=== PATIENT | male | born 1945 | race Caucasian/White ===

== ENCOUNTER 2018-08-14 13:14 | Emergency (ER) | payer MEDICARE ==
[~2018-08-14] VITALS: Ht 172.7 cm; Wt 104.2 kg
[~2018-08-14 13:14] MED LIST: ALLO300T PO; FINA5TAB4 PO
[2018-08-14 13:22] VITALS: BP 134/95
[2018-08-14] MEDS ORDERED: L.E.T SOLUTION TP ONE ×2 (13:53→14:00)
[2018-08-14] MEDS ORDERED: DIPH,PERTUSS(ACELL),TET VAC/PF 0.5 ML IM-VACC ONE ×2 (14:00)
== END 2018-08-14 14:24 | disposition home or self-care (01) ==
LOC: ED 14:15
DX: S06.0X0A Concussion without loss of consciousness, initial encounter (principal); S01.01XA Laceration without foreign body of scalp, initial encounter; M10.9 Gout, unspecified; W01.0XXA Fall on same level from slipping, tripping and stumbling without subsequent striking against object, initial encounter; Y93.89 Activity, other specified; Y92.009 Unspecified place in unspecified non-institutional (private) residence as the place of occurrence of the external cause; Y99.8 Other external cause status
CPT/HCPCS: 12031; 70450; 72125; 90471; 90715; 99285

== ENCOUNTER 2019-09-22 09:22 | Inpatient (IN) | payer MEDICARE ==
[~2019-09-22] VITALS: Ht 172.7 cm; Wt 102.3 kg
--- NOTE | 2019-09-22 11:25 | NUR ---
TASK RN: BLADDER IRRIGATION COMPLETED BY USAMA, PRIMARY RN. PT CURRENTLY HAS PINK TINGED DRAINAGE. NO CLOTS NOTED. PT RESTING ON GURNEY. STATES HE FEELS MUCH IMPROVED. VSS.
--- NOTE | 2019-09-22 11:40 | NUR ---
PT PRESENTED TO ER THIS MORNING WITH INABILITY TO URINATE, AND BLOODY DRAINAGE FROM URETHRA. 20FR COUDE TIP SINGLE LUMEN CATHETER PLACED. 400ML STERILE WATER USED FOR MANUAL IRRIGATION OF BLADDER. MANY CLOTS DRAINED. BLADDER SCAN IN ALL 4 QUADS SHOWS 0ML, 0ML, 0ML, AND 17ML. ERP VERBAL ORDER FOR 300ML STERILE WATER TO BE INSTILLED, THEN ALLOWED TO DRAIN TO CHECK FOR CLARITY AND POSSIBLE CONTINUING BLEEDING. PT TOLERATED 250ML. CALL LIGHT IN REACH, PT DENIES ANY CURRENT NEEDS OR CONCERNS, WARM BLANKETS PROVIDED. WILL CONTINUE TO MONITOR.
[2019-09-22 12:24] LABS: BASOPHILS # (AUTO) 0.02 x10^3/uL (0-0.1); BASOPHILS % (AUTO) 0 % (0-1); EOSINOPHILS # (AUTO) 0.02 x10^3/uL (0-0.4); EOSINOPHILS % (AUTO) 0 % (1-7); LYMPHOCYTES # (AUTO) 0.58 x10^3/uL (1-3.4); LYMPHOCYTES % (AUTO) 7 % (22-44); MD NO; MEAN CORPUSCULAR HGB CONC 33.2 g/dL (33.2-36.2); MEAN CORPUSCULAR VOLUME 99.4 fL (81-97); MEAN PLATELET VOLUME 8.4 fL (7.4-10.4); MONOCYTES # (AUTO) 0.59 x10^3/uL (0.2-0.8); MONOCYTES % (AUTO) 7 % (2-9); NEUTROPHILS # (AUTO) 6.94 x10^3/uL (1.8-6.8); NEUTROPHILS % (AUTO) 85 % (42-75); PLATELET COUNT 169 x10^3/uL (130-400); RED BLOOD COUNT 4.56 x10^6/uL (4.38-5.82); RED CELL DISTRIBUTION WIDTH 14.5 % (9.4-14.8)
[2019-09-22 12:32] LABS: PROTHROMBIN TIME 10.5 Seconds (9.6-11.5)
[2019-09-22 12:34] LABS: ALBUMIN 3.5 g/dL (3.4-5.0); ANION GAP 5 mmol/L (5-15); CALCIUM 8.8 mg/dL (8.5-10.1); CHLORIDE 112 mmol/L (98-107)
[2019-09-22 12:38] LABS: ALANINE AMINOTRANSFERASE 33 U/L (12-78); ALKALINE PHOSPHATASE 53 U/L (45-117); BILIRUBIN,TOTAL 0.7 mg/dL (0.2-1.0); CREATININE 0.96 mg/dL (0.7-1.3); TOTAL PROTEIN 6.8 g/dL (6.4-8.2)
--- NOTE | 2019-09-22 12:51 | NUR ---
REPORT CALLED TO MIRYAM RN. PT AWAITING CT BEFORE GOING UPSTAIRS. IV STARTED IN LAC, 20G. PT TOLERATED WELL. DRAINAGE BAG CHANGED DUE TO BLOCKAGE BY CLOTS. PT DENIES ANY FURTHER NEEDS OR CONCERNS AT THIS TIME. CALL LIGHT IN REACH.
--- NOTE | 2019-09-22 13:39 | NUR ---
PT TAKEN TO CT. PT BELONGINGS BAGGED. READY FOR TRANSPORT UPON RETURN TO ROOM.
[2019-09-22] MEDS ORDERED: ONDANSETRON 2MG/ML, 2ML IVPush PRN (14:30)
[2019-09-22] MEDS ORDERED: ACETAMINOPHEN 325 MG TABLET PO PRN (14:30)
[2019-09-22] MEDS ORDERED: ONDANSETRON ODT 4 MG PO PRN (14:30)
[2019-09-22] MEDS ORDERED: POLYETHYLENE GLYCOL 17 GM PACKET PO PRN (14:30)
[2019-09-22] MEDS ORDERED: morphine SULFATE 10 MG/ML, 1ML IVPush PRN (14:30)
[2019-09-22] MEDS ORDERED: hydrALAzine 20 MG/ML, 1ML IVPush PRN (14:30)
[2019-09-22] MEDS ORDERED: GUAIFENESIN/DM 200-20MG, 10ML UDC PO PRN (14:30)
[2019-09-22] MEDS ORDERED: TRAZODONE 50MG TABLET PO PRN (14:30)
[2019-09-22] MEDS ORDERED: ASA/APAP/ CAFFEINE TABLET PO PRN (14:30)
[2019-09-22 14:35] VITALS: BP 136/83
[2019-09-22 21:08] VITALS: BP 104/70
[2019-09-23 05:23] LABS: BASOPHILS # (AUTO) 0.02 x10^3/uL (0-0.1); BASOPHILS % (AUTO) 0 % (0-1); EOSINOPHILS # (AUTO) 0.08 x10^3/uL (0-0.4); EOSINOPHILS % (AUTO) 1 % (1-7); LYMPHOCYTES # (AUTO) 0.79 x10^3/uL (1-3.4); LYMPHOCYTES % (AUTO) 13 % (22-44); MD NO; MEAN CORPUSCULAR HEMOGLOBIN 32.8 pg (27.5-34.5); MEAN CORPUSCULAR HGB CONC 33.7 g/dL (33.2-36.2); MEAN CORPUSCULAR VOLUME 97.4 fL (81-97); MEAN PLATELET VOLUME 8.3 fL (7.4-10.4); MONOCYTES # (AUTO) 0.68 x10^3/uL (0.2-0.8); MONOCYTES % (AUTO) 11 % (2-9); NEUTROPHILS # (AUTO) 4.57 x10^3/uL (1.8-6.8); NEUTROPHILS % (AUTO) 74 % (42-75); PLATELET COUNT 166 x10^3/uL (130-400); RED BLOOD COUNT 4.19 x10^6/uL (4.38-5.82); RED CELL DISTRIBUTION WIDTH 14.4 % (9.4-14.8)
[2019-09-23 05:31] LABS: ANION GAP 7 mmol/L (5-15); CALCIUM 8.4 mg/dL (8.5-10.1); CHLORIDE 110 mmol/L (98-107)
[2019-09-23 05:32] LABS: CREATININE 1.09 mg/dL (0.7-1.3)
[2019-09-23 07:20] VITALS: BP 121/74
[2019-09-23] MEDS: ALLOPURINOL 300 MG TABLET PO SCH (09:36)
[2019-09-23] MEDS: FINASTERIDE 5 MG TABLET PO SCH (09:36)
[2019-09-23 13:29] VITALS: BP_SYST 100; BP_SYST 129; BP_DIAS 64; BP_DIAS 87
[2019-09-23 19:25] VITALS: BP 138/83
[2019-09-24 01:50] VITALS: BP 129/79
[2019-09-24 07:22] VITALS: BP 114/73
[2019-09-24 08:10] LABS: BASOPHILS # (AUTO) 0.03 x10^3/uL (0-0.1); BASOPHILS % (AUTO) 1 % (0-1); EOSINOPHILS # (AUTO) 0.12 x10^3/uL (0-0.4); EOSINOPHILS % (AUTO) 2 % (1-7); LYMPHOCYTES # (AUTO) 0.73 x10^3/uL (1-3.4); LYMPHOCYTES % (AUTO) 14 % (22-44); MD NO; MEAN CORPUSCULAR HEMOGLOBIN 32.7 pg (27.5-34.5); MEAN CORPUSCULAR HGB CONC 33.7 g/dL (33.2-36.2); MEAN CORPUSCULAR VOLUME 97.2 fL (81-97); MEAN PLATELET VOLUME 8.4 fL (7.4-10.4); MONOCYTES # (AUTO) 0.63 x10^3/uL (0.2-0.8); MONOCYTES % (AUTO) 12 % (2-9); NEUTROPHILS % (AUTO) 72 % (42-75); PLATELET COUNT 164 x10^3/uL (130-400); RED BLOOD COUNT 4.18 x10^6/uL (4.38-5.82); RED CELL DISTRIBUTION WIDTH 14.4 % (9.4-14.8)
[2019-09-24] MEDS: ALLOPURINOL 300 MG TABLET PO SCH (09:27)
[2019-09-24] MEDS: FINASTERIDE 5 MG TABLET PO SCH (09:27)
[2019-09-24 12:52] VITALS: BP 120/79
[2019-09-24 19:08] VITALS: BP 143/85
[2019-09-25 05:13] LABS: BASOPHILS # (AUTO) 0.03 x10^3/uL (0-0.1); BASOPHILS % (AUTO) 0 % (0-1); EOSINOPHILS # (AUTO) 0.19 x10^3/uL (0-0.4); EOSINOPHILS % (AUTO) 3 % (1-7); LYMPHOCYTES # (AUTO) 1.06 x10^3/uL (1-3.4); LYMPHOCYTES % (AUTO) 15 % (22-44); MD NO; MEAN CORPUSCULAR HEMOGLOBIN 33.1 pg (27.5-34.5); MEAN CORPUSCULAR HGB CONC 33.2 g/dL (33.2-36.2); MEAN CORPUSCULAR VOLUME 99.7 fL (81-97); MEAN PLATELET VOLUME 8.6 fL (7.4-10.4); MONOCYTES # (AUTO) 0.95 x10^3/uL (0.2-0.8); MONOCYTES % (AUTO) 14 % (2-9); NEUTROPHILS # (AUTO) 4.75 x10^3/uL (1.8-6.8); NEUTROPHILS % (AUTO) 68 % (42-75); PLATELET COUNT 154 x10^3/uL (130-400); RED BLOOD COUNT 3.96 x10^6/uL (4.38-5.82); RED CELL DISTRIBUTION WIDTH 14.4 % (9.4-14.8)
[2019-09-25 05:20] LABS: ANION GAP 6 mmol/L (5-15); CALCIUM 8.6 mg/dL (8.5-10.1); CHLORIDE 109 mmol/L (98-107)
[2019-09-25 05:24] LABS: ALANINE AMINOTRANSFERASE 27 U/L (12-78); ALKALINE PHOSPHATASE 48 U/L (45-117); BILIRUBIN,TOTAL 0.5 mg/dL (0.2-1.0); CREATININE 0.99 mg/dL (0.7-1.3)
[2019-09-25 06:44] VITALS: BP 123/76
[2019-09-25] MEDS: ALLOPURINOL 300 MG TABLET PO SCH (08:24)
[2019-09-25] MEDS: FINASTERIDE 5 MG TABLET PO SCH (08:25)
[2019-09-25] MEDS: DOCUSATE 100 MG CAPSULE PO SCH ×2 (11:59→20:11)
[2019-09-25 18:55] VITALS: BP 136/94
[2019-09-26 00:36] VITALS: BP 125/73
[2019-09-26 07:28] VITALS: BP 124/77
[2019-09-26] MEDS: ALLOPURINOL 300 MG TABLET PO SCH (08:29)
[2019-09-26] MEDS: DOCUSATE 100 MG CAPSULE PO SCH ×2 (08:29→20:25)
[2019-09-26] MEDS: FINASTERIDE 5 MG TABLET PO SCH (08:29)
[2019-09-26 12:38] VITALS: BP 136/89
[2019-09-26] MEDS ORDERED: FENTANYL PF 100 MCG/2ML ONE ×2 (14:00→15:07)
[2019-09-26] MEDS ORDERED: LIDOCAINE-MPF 2% ,5ML ONE (14:01)
[2019-09-26] MEDS ORDERED: SUCCINYLCHOLINE 20 MG/ML, 10ML ONE (14:01)
[2019-09-26] MEDS ORDERED: DEXAMETHASONE 4 MG/ML, 1ML ONE ×2 (14:03)
[2019-09-26] MEDS ORDERED: PROPOFOL 10 MG/ML, 20ML ONE (14:46)
[2019-09-26] MEDS ORDERED: PHENYLEPHRINE 10 MG/ML ONE (14:46)
[2019-09-26] MEDS ORDERED: KETOROLAC 30 MG/1 ML ONE (14:55)
[2019-09-26] MEDS ORDERED: HYDROmorphone 2 MG/ML, 1ML IVPush PRN (15:00)
[2019-09-26] MEDS ORDERED: hydrALAzine 20 MG/ML, 1ML IV PRN (15:00)
[2019-09-26] MEDS ORDERED: PROMETHAZINE 25 MG/ML, 1ML IV PRN (15:00)
[2019-09-26] MEDS ORDERED: ACETAMINOPHEN 325 MG TABLET PO PRN (15:00)
[2019-09-26] MEDS ORDERED: FENTANYL PF 100 MCG/2ML IV PRN (15:00)
[2019-09-26] MEDS ORDERED: LABETALOL 5MG/ML, 20ML IV PRN (15:00)
[2019-09-26] MEDS ORDERED: ONDANSETRON 2MG/ML, 2ML IV PRN (15:00)
[2019-09-26] MEDS ORDERED: MEPERIDINE/PF 25MG/ML,1ML IVPush PRN (15:00)
[2019-09-26] MEDS ORDERED: HYDROcodone/APAP 7.5-325MG/15ML UDC PO PRN (15:00)
[2019-09-26] MEDS ORDERED: EPHEDRINE 50 MG/ML, 1ML IVPush PRN (15:00)
[2019-09-26] MEDS ORDERED: ONDANSETRON 2MG/ML, 2ML ONE (15:34)
[2019-09-26 17:05] VITALS: BP 147/90
[2019-09-26 19:29] VITALS: BP 152/69
[2019-09-27 02:03] VITALS: BP 115/69
[2019-09-27 05:18] LABS: BASOPHILS % (AUTO) 0 % (0-1); EOSINOPHILS # (AUTO) 0.04 x10^3/uL (0-0.4); EOSINOPHILS % (AUTO) 1 % (1-7); LYMPHOCYTES # (AUTO) 0.58 x10^3/uL (1-3.4); LYMPHOCYTES % (AUTO) 7 % (22-44); MD NO; MEAN CORPUSCULAR HGB CONC 32.9 g/dL (33.2-36.2); MEAN CORPUSCULAR VOLUME 100.3 fL (81-97); MEAN PLATELET VOLUME 8.8 fL (7.4-10.4); MONOCYTES % (AUTO) 10 % (2-9); NEUTROPHILS # (AUTO) 6.37 x10^3/uL (1.8-6.8); NEUTROPHILS % (AUTO) 82 % (42-75); PLATELET COUNT 165 x10^3/uL (130-400); RED BLOOD COUNT 3.82 x10^6/uL (4.38-5.82); RED CELL DISTRIBUTION WIDTH 14.4 % (9.4-14.8)
[2019-09-27 06:59] VITALS: BP 128/77
[2019-09-27] MEDS: ALLOPURINOL 300 MG TABLET PO SCH (09:24)
[2019-09-27] MEDS: DOCUSATE 100 MG CAPSULE PO SCH ×2 (09:24→20:52)
[2019-09-27] MEDS: FINASTERIDE 5 MG TABLET PO SCH (09:24)
[2019-09-27] MEDS: FERROUS SULFATE 325 MG TABLET PO SCH (11:46)
[2019-09-27 12:56] VITALS: BP 113/67
[2019-09-27 19:58] VITALS: BP 111/75
[2019-09-28 00:31] VITALS: BP 116/69
[2019-09-28 05:07] LABS: BASOPHILS # (AUTO) 0.04 x10^3/uL (0-0.1); BASOPHILS % (AUTO) 1 % (0-1); EOSINOPHILS # (AUTO) 0.26 x10^3/uL (0-0.4); EOSINOPHILS % (AUTO) 4 % (1-7); LYMPHOCYTES % (AUTO) 15 % (22-44); MD NO; MEAN CORPUSCULAR HEMOGLOBIN 33.3 pg (27.5-34.5); MEAN CORPUSCULAR HGB CONC 33.2 g/dL (33.2-36.2); MEAN CORPUSCULAR VOLUME 100.3 fL (81-97); MEAN PLATELET VOLUME 8.4 fL (7.4-10.4); MONOCYTES # (AUTO) 0.76 x10^3/uL (0.2-0.8); MONOCYTES % (AUTO) 12 % (2-9); NEUTROPHILS # (AUTO) 4.48 x10^3/uL (1.8-6.8); NEUTROPHILS % (AUTO) 69 % (42-75); PLATELET COUNT 156 x10^3/uL (130-400); RED BLOOD COUNT 3.84 x10^6/uL (4.38-5.82); RED CELL DISTRIBUTION WIDTH 14.8 % (9.4-14.8)
[2019-09-28 05:19] LABS: CHLORIDE 111 mmol/L (98-107)
[2019-09-28 05:27] LABS: ANION GAP 3 mmol/L (5-15); CALCIUM 8.3 mg/dL (8.5-10.1); CREATININE 0.99 mg/dL (0.7-1.3)
[2019-09-28] MEDS: DOCUSATE 100 MG CAPSULE PO SCH (08:51)
[2019-09-28] MEDS: ALLOPURINOL 300 MG TABLET PO SCH (08:51)
[2019-09-28] MEDS: FINASTERIDE 5 MG TABLET PO SCH (08:51)
[2019-09-28] MEDS: FERROUS SULFATE 325 MG TABLET PO SCH (08:51)
[2019-09-28] MEDS ORDERED: ACET325T26 PO (09:31)
[2019-09-28] MEDS ORDERED: FERR-51 PO (09:31)
[2019-09-28] MEDS ORDERED: DOCU100C33 PO (09:31)
[2019-09-28 09:38] VITALS: BP 121/76
== END 2019-09-28 13:52 | disposition home or self-care (01) | DRG 713 ==
LOC: ED 12:08 → EDIP 12:09 → ED 12:21 → 3N 14:10 → DCLOUNGE 09-28 13:40
PROVIDERS: ADMIT Family Medicine; ATTEND Internal Medicine
PROC: 0VT08ZZ Resection of Prostate, Via Natural or Artificial Opening Endoscopic (ICD-10-PCS; principal; 2019-09-26 12:15)
DX: N40.1 Benign prostatic hyperplasia with lower urinary tract symptoms (principal); D62 Acute posthemorrhagic anemia; R31.0 Gross hematuria; D53.9 Nutritional anemia, unspecified; D75.89 Other specified diseases of blood and blood-forming organs; N32.9 Bladder disorder, unspecified; R33.8 Other retention of urine; M10.9 Gout, unspecified; E66.9 Obesity, unspecified; Z68.34 Body mass index [BMI] 34.0-34.9, adult; Z87.442 Personal history of urinary calculi; Z87.891 Personal history of nicotine dependence; Z90.79 Acquired absence of other genital organ(s)
CPT/HCPCS: 36415; 74178; 80048; 80053; 82607; 82728; 83540; 83550; 83735; 84466; 85025; 85610; 88305; G0378; J1100; J1885; J2405; J2704; J3010; J0330; J2370

== ENCOUNTER 2019-09-30 16:58 | Emergency (ER) | payer MEDICARE ==
[~2019-09-30] VITALS: Ht 172.7 cm; Wt 101.2 kg
[~2019-09-30 16:58] MED LIST changes: +ACET325T26 PO; +DOCU100C33 PO; +FERR-51 PO
--- NOTE | 2019-09-30 18:07 | NUR ---
Pt presents to ED with family from home with c/o red bloody urine in ayon catheter bag without trauma or pain that has continued [facility] 0200 today. Pt states he had a prostate surgery last week and is scheduled to have the ayon catheter removed at his follow up appointment on Tuesday. Pt denies fever, pain, cp, sob, n/v/d. NADN.
--- NOTE | 2019-09-30 18:11 | NUR ---
Pt denies issues with the ayon catheter draining. Pt states, "it is flowing steady and I havn't seen any clots."
--- NOTE | 2019-09-30 18:55 | NUR ---
CBI started with slower rate per ED MD verbal order. NADN. No other needs expressed. Call light within reach.
--- NOTE | 2019-09-30 18:59 | NUR ---
Provided report to REYNALDO Harvey. All questions answered. REYNALDO Harvey to assume care of pt at this time. NADN. No needs expressed.
--- NOTE | 2019-09-30 19:52 | NUR ---
RN x2 to bedside, received report and assumed patient care. Nocturnal RN at bedside confirming flowing of CBI, patient resting comfortably, alert and oriented, reports no suprapubic discomfort. Provider discussed plan of care with RN. Prefers to increase rate despite response already no mine red blood. Targetting 1.5-2L through bladder before likely discharge.
[2019-09-30 21:13] VITALS: BP 140/85
== END 2019-09-30 21:26 | disposition home or self-care (01) ==
LOC: ED 17:46
DX: R31.0 Gross hematuria (principal); N40.0 Benign prostatic hyperplasia without lower urinary tract symptoms; Z98.890 Other specified postprocedural states; Z87.891 Personal history of nicotine dependence; Z88.0 Allergy status to penicillin
CPT/HCPCS: 99283

== ENCOUNTER 2019-10-17 17:13 | Emergency (ER) | payer MEDICARE ==
[~2019-10-17] VITALS: Ht 172.7 cm; Wt 95.0 kg
--- NOTE | 2019-10-17 17:54 | NUR ---
software development specialist: Pt wheeled to ED room 18 from lobby in [facility] at this time.
--- NOTE | 2019-10-17 18:18 | NUR ---
PT WC'D TO ROOM 18 W/ C/O L CALF PAIN. PT STATES HE HAD SURGERY 2 WEEKS AGO AND WAS DC'D FROM [facility] THEN AND HAS BEEN CHAIR BOUND SINCE. STATES HE THOUGHT IT WAS A STRAINED MUSCLE BUT WHEN PT WENT TO SEE PCP YESTERDAY THERE WERE SOME CONCERNS FOR DVT. PT STATES HE HAD US DONE THEN THAT CAME BACK + FOR DVT. PT ALSO HAS C/O TROUBLE URINATING AND BELIEVES HE HAS A UTI. PT RESTING ON GURNEY. NADN. VSS. MONITORS APPLIED. WARM BLANKET PROVIDED.
[2019-10-17 18:53] LABS: BASOPHILS # (AUTO) 0.04 x10^3/uL (0-0.1); BASOPHILS % (AUTO) 1 % (0-1); EOSINOPHILS # (AUTO) 0.43 x10^3/uL (0-0.4); EOSINOPHILS % (AUTO) 6 % (1-7); LYMPHOCYTES # (AUTO) 0.99 x10^3/uL (1-3.4); LYMPHOCYTES % (AUTO) 14 % (22-44); MD NO; MEAN CORPUSCULAR HEMOGLOBIN 32.8 pg (27.5-34.5); MEAN CORPUSCULAR HGB CONC 32.9 g/dL (33.2-36.2); MEAN CORPUSCULAR VOLUME 99.6 fL (81-97); MEAN PLATELET VOLUME 8.4 fL (7.4-10.4); MONOCYTES # (AUTO) 0.81 x10^3/uL (0.2-0.8); MONOCYTES % (AUTO) 12 % (2-9); NEUTROPHILS # (AUTO) 4.77 x10^3/uL (1.8-6.8); NEUTROPHILS % (AUTO) 68 % (42-75); PLATELET COUNT 194 x10^3/uL (130-400); RED BLOOD COUNT 4.26 x10^6/uL (4.38-5.82); RED CELL DISTRIBUTION WIDTH 14.6 % (9.4-14.8)
[2019-10-17 19:02] LABS: INTERNATIONAL NORMALIZED RATIO 0.97 (0.93-1.1); PROTHROMBIN TIME 10.2 Seconds (9.6-11.5)
[2019-10-17 19:04] LABS: ALANINE AMINOTRANSFERASE 40 U/L (12-78); ALBUMIN 3.4 g/dL (3.4-5.0); ANION GAP 5 mmol/L (5-15); CALCIUM 9.1 mg/dL (8.5-10.1); CHLORIDE 111 mmol/L (98-107); CREATININE 1.05 mg/dL (0.7-1.3)
[2019-10-17 19:07] LABS: ALKALINE PHOSPHATASE 74 U/L (45-117); BILIRUBIN,TOTAL 0.3 mg/dL (0.2-1.0); TOTAL PROTEIN 7.4 g/dL (6.4-8.2)
--- NOTE | 2019-10-17 19:29 | NUR ---
PT RESTING ON GURNEY. NO ACUTE DISTRESS, NO REQUESTS AT THIS TIME. URINE SENT TO LAB.
[2019-10-17 19:38] LABS: MICROSCOPIC AUTO
[2019-10-17 19:42] LABS: CULTURE INDICATED? YES
--- NOTE | 2019-10-17 20:02 | NUR ---
PT FOR RECHECK
[2019-10-17] MEDS ORDERED: CEFDINIR 300 MG CAPSULE ONE (20:29)
[2019-10-17] MEDS ORDERED: APIXABAN 5 MG TABLET ONE (20:29)
[2019-10-17] MEDS ORDERED: APIXABAN 5 MG TABLET PO SCH (20:30)
[2019-10-17] MEDS ORDERED: CEFDINIR 300 MG CAPSULE PO ONE (20:30)
[2019-10-17 20:31] VITALS: BP 138/89
[2019-10-17] MEDS ORDERED: APIXABAN 5 MG TABLET PO ONE (22:00)
== END 2019-10-17 21:18 | disposition home or self-care (01) ==
LOC: ED 21:09
DX: I82.412 Acute embolism and thrombosis of left femoral vein (principal); I82.432 Acute embolism and thrombosis of left popliteal vein; N30.01 Acute cystitis with hematuria; I10 Essential (primary) hypertension; M10.9 Gout, unspecified; Z87.891 Personal history of nicotine dependence
CPT/HCPCS: 36415; 80053; 81001; 85025; 85610; 85730; 87077; 87086; 87186; 93005; 99284

== ENCOUNTER → 2019-10-17 | Outpatient (CLI) | payer MEDICARE | END | disposition home or self-care (01) | LOC: CFH 15:40 | PROVIDERS: ATTEND Urology | DX: I82.412 Acute embolism and thrombosis of left femoral vein (principal); I82.432 Acute embolism and thrombosis of left popliteal vein ==

== ENCOUNTER → 2020-04-25 | Outpatient (CLI) | payer MEDICARE | END | disposition home or self-care (01) | LOC: CFH 13:20 | PROVIDERS: ATTEND Family Medicine | DX: I82.432 Acute embolism and thrombosis of left popliteal vein (principal) ==